=== PATIENT | male | born 1940 | race Caucasian/White ===

== ENCOUNTER 2020-06-14 16:24 | Emergency (ER) | payer MEDICARE, OTHER ==
[~2020-06-14] VITALS: Ht 188 cm; Wt 90.9 kg
--- NOTE | 2020-06-14 17:24 | PHYS DOC ---
Past History Past Medical History: No Pertinent History Past Surgical History: No Surgical History Alcohol Use: Occasionally General Adult EDM: Chief Complaint: PSYCH EVALUATION HPI: HPI: Patient is a 79-year-old male who was brought here for psychological evaluation because he was trick to give away $10,000 for a state funded prize that he was told he won. 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 In order to claim the prize he had to put in $10,000. He allowed them to withdraw some money over the phone and then they came by his house and he gave them the rest in [place]. His daughters found out about it and became upset, wanted him to be evaluated for mental problem. Patient denies suicidal ideation, denies homicidal ideation. Patient said he knew that he was tricked. He said there is nothing wrong with him mentally. Patient feels fine, no headache, no neck pain, no blurry vision, no cough, no fever. Patient denies any chest pain, no trouble breathing, no nausea vomiting. Review of Systems: Review of Systems: Constitutional: Denies fever or chills Eyes: Denies change in visual acuity HENT: Denies nasal congestion or sore throat Respiratory: Denies cough or shortness of breath Cardiovascular: Denies chest pain or edema GI: Denies abdominal pain, nausea, vomiting, bloody stools or diarrhea : Denies dysuria Musculoskeletal: Denies back pain or joint pain Integument: Denies rash Neurologic: Denies headache, focal weakness or sensory changes Endocrine: Denies polyuria or polydipsia Lymphatic: Denies swollen glands Psychiatric: Denies depression or anxiety Heart Score: Risk Factors: Risk Factors: DM, Current or recent (<one month) smoker, HTN, HLP, family history of CAD, obesity. Risk Scores: Score 0 - 3: 2.5% MACE over next 6 weeks - Discharge Home Score 4 - 6: 20.3% MACE over next 6 weeks - Admit for Clinical Observation Score 7 - 10: 72.7% MACE over next 6 weeks - Early Invasive Strategies Allergies: Allergies: Allergies Coded Allergies Type Severity Reaction Last Updated Verified No Known Drug Allergies 06/14/20 No Physical Exam: PE: Constitutional: Well developed, well nourished, no acute distress, non-toxic appearance. [] HENT: Normocephalic, atraumatic, bilateral external ears normal, oropharynx moist, no oral exudates, nose normal. [] Eyes: PERRLA, EOMI, conjunctiva normal, no discharge. [] Neck: Normal range of motion, no tenderness, supple, no stridor. [] Cardiovascular:Heart rate regular rhythm, no murmur [] Lungs & Thorax: Bilateral breath sounds clear to auscultation [] Abdomen: Bowel sounds normal, soft, no tenderness, no masses, no pulsatile masses. [] Skin: Warm, dry, no erythema, no rash. [] Back: No tenderness, no CVA tenderness. [] Extremities: No tenderness, no cyanosis, no clubbing, ROM intact, no edema. [] Neurologic: Alert and oriented X 3, normal motor function, normal sensory function, no focal deficits noted. Patient is awake alert oriented to time place and person, he knows his birthday, the day of the month and the day of the week and the year, he know who the current president is who is Noe Lauren. Psychologic: Affect normal, judgement normal, mood normal. No suicidal ideation, no homicidal ideation. Normal competent judgment. Current Patient Data: Vital Signs: Vital Signs Date Time Temp Pulse Resp B/P (MAP) Pulse Ox O2 Delivery O2 Flow Rate FiO2 06/14/20 16:41 99.3 86 18 131/105 (114) 96 Room Air EKG: EKG: [] Radiology/Procedures: Radiology/Procedures: [] Course & Med Decision Making: Course & Med Decision Making Pertinent Labs and Imaging studies reviewed. (See chart for details) Patient is a 79-year-old male who was evaluated in the ER due to concern about mental illness however patient was sharp, competent, displayed no psychological problem. There is no further work-up needed at this time. Patient was discharged in stable condition. Zeuson Disclaimer: Michelle Disclaimer: This electronic medical record was generated, in whole or in part, using a voice recognition dictation system. Departure Departure: Impression: Primary Impression: Encounter for medical screening examination Disposition: HOME/RESIDENCE PRIOR TO ADM Condition: STABLE Referrals: PCP,NO (PCP) PLEASE FOLLOW UP WITH YOUR DOCTOR THIS WEEK Patient Instructions: Medical Screening Exam Justification of Admission: Justification of Admission: Justification of Admission Dx: N/A PARRY,PETER T DO Jun 14, 2020 17:24
[2020-06-14 17:29] VITALS: BP 135/82
== END 2020-06-14 17:29 | disposition home or self-care (01) ==
LOC: ER 16:24
DX: Z00.8 Encounter for other general examination (principal)
CPT/HCPCS: 99281